=== PATIENT | female | born 1960 | race Caucasian/White ===

== ENCOUNTER 2018-10-27 07:57 | Emergency (ER) | payer BC ==
[~2018-10-27] VITALS: Ht 157.5 cm; Wt 58.0 kg
[~2018-10-27 07:57] MED LIST: ALPRAZOLAM0.25 M1 PO; ATENOLOL25 MG PO; AUGMENTIN875TAB PO; BACLOFEN10 MG PO; BACTRIM DS1 TAB PO; CIPROFLOXACN500 MG PO; DIFLUCAN150 MG PO; EPIPEN0.3 MG IM; FISH OIL1000 MG PO; FLEXERIL5 M1 PO; HYDROCHLOROT12.5 MG PO; LISINOPRIL20 M1 PO; LORTAB 5/3255 MG PO; MEDDOSEPAK OR; METRONIDAZOL250 MG PO; NAPROSYN500 MG PO; PREDNISONE20 MG PO; PRILOSEC20 MG PO; PROGESTERONE TOP; PYRIDIUM200 MG PO; TETRACYCLINE H500 MG PO; TRAMADOL HCL50 MG PO; ULTRAM50 M1 PO; VITAMIN D PO; XANAX0.25 MG PO; [UNRECOGNIZED DRUG - OTHER] PO
[2018-10-27] MEDS ORDERED: CARDIZEM30 MG PO (08:39)
[2018-10-27] MEDS ORDERED: PROTONIX40 M2 PO (08:39)
[2018-10-27 08:46] LABS: HEMATOCRIT 44.8 % (37.0-47.0); HEMOGLOBIN 14.6 g/dl (12.0-16.0); IMMATURE GRANULOCYTES 0.3 % (0.0-5.0); MEAN CORPUSCULAR HGB 30.4 pG CALC (26.0-32.0); MEAN CORPUSCULAR HGB CONC 32.6 g/L CALC (32.0-36.0); NEUT# 7.4 thou/uL (2.00-7.15); RED BLOOD COUNT 4.8 mill/uL (4.20-5.60); RED CELL DISTRI WIDTH 12.2 % (11.5-15.5)
[2018-10-27 08:47] LABS: MEAN CELL VOLUME 93.3 fL CALC (80.0-100.0)
[2018-10-27 08:48] LABS: URINE BILIRUBIN - DIPSTICK NEGATIVE (NEGATIVE); URINE BLOOD DIPSTICK LARGE (NEGATIVE); URINE COLOR YELLOW; URINE GLUCOSE - DIPSTICK NEGATIVE (NEGATIVE); URINE KETONE TRACE mg/dL (NEGATIVE); URINE NITRITE - DIPSTICK NEGATIVE (Negative); URINE PH 6.5 (4.5-8.0); URINE PROTEIN - DIPSTICK 100 mg/dL (NEG-TRACE); URINE SPECIFIC GRAVITY >=1.030; URINE UROBILINOGEN - DIPSTICK 0.2 E.U./dL (0.2)
[2018-10-27 08:49] LABS: URINE LEUK ESTERASE MODERATE (NEGATIVE); URINE SQUAMOUS EPITHELIAL CELL FEW EPI/hpf (0-FEW); URINE WBC 50-100 WBC/hpf (0-5)
[2018-10-27 08:58] LABS: ALBUMIN 4.7 g/dL (3.2-5.0); ALKALINE PHOSPHATASE 98 u/l (38-126); ANION GAP 14 (6-22 (CALC)); BILIRUBIN, TOTAL 0.6 mg/dL (0.0-1.4); BUN 12 mg/dL (7-17); BUN/CREATININE RATIO 17 (12-20 (CALC)); CARBON DIOXIDE 30 mmol/l (22-30); CHLORIDE 101 mmol/l (95-108); CREATININE 0.7 mg/dL (0.5-1.0); GFR > 60 ML/MIN (>=60 (CALC)); GFR FOR AFR.AMER. > 60 ML/MIN (>=60 (CALC)); LIPASE 79 u/l (23-300); POTASSIUM 3.7 mmol/l (3.5-5.1); SGOT/AST 26 u/l (14-36); SODIUM 142 mmol/l (137-146); TOTAL PROTEIN 7.8 g/dL (6.3-8.2)
[2018-10-27] MEDS ORDERED: CEPHALEXIN500 M1 PO (12:14)
[2018-10-27 12:15] VITALS: BP 154/86
== END 2018-10-27 12:21 | disposition home or self-care (01) | DRG 690 ==
LOC: ED 07:57
PROVIDERS: Family Medicine
DX: N39.0 Urinary tract infection, site not specified (principal); B96.4 Proteus (mirabilis) (morganii) as the cause of diseases classified elsewhere; R10.12 Left upper quadrant pain; R94.31 Abnormal electrocardiogram [ECG] [EKG]; I10 Essential (primary) hypertension

== ENCOUNTER 2019-03-05 10:27 | Emergency (ER) | payer BC ==
[~2019-03-05] VITALS: Ht 157.5 cm; Wt 57.3 kg
[~2019-03-05 10:27] MED LIST changes: +CEPHALEXIN500 M1 PO; +DILTIAZEM60 MG PO; +PROTONIX40 M2 PO
[2019-03-05 11:44] LABS: HEMATOCRIT 42.2 % (37.0-47.0); HEMOGLOBIN 13.8 g/dl (12.0-16.0); IMMATURE GRANULOCYTES 0.2 % (0.0-5.0); MEAN CELL VOLUME 90.2 fL CALC (80.0-100.0); MEAN CORPUSCULAR HGB 29.5 pG CALC (26.0-32.0); MEAN CORPUSCULAR HGB CONC 32.7 g/L CALC (32.0-36.0); NEUT# 6.36 thou/uL (2.00-7.15); RED BLOOD COUNT 4.68 mill/uL (4.20-5.60); RED CELL DISTRI WIDTH 11.9 % (11.5-15.5)
[2019-03-05 12:09] LABS: ANION GAP 13 (6-22 (CALC)); BUN 13 mg/dL (7-17); BUN/CREATININE RATIO 22 (12-20 (CALC)); CARBON DIOXIDE 28 mmol/l (22-30); CHLORIDE 105 mmol/l (95-108); CREATININE 0.6 mg/dL (0.5-1.0); GFR > 60 ML/MIN (>=60 (CALC)); GFR FOR AFR.AMER. > 60 ML/MIN (>=60 (CALC)); POTASSIUM 4.1 mmol/l (3.5-5.1); SODIUM 142 mmol/l (137-146)
[2019-03-05] MEDS ORDERED: FIORICET PO (12:41)
[2019-03-05] MEDS ORDERED: FLEXERIL5 MG PO (12:41)
[2019-03-05 13:13] VITALS: BP 148/88
== END 2019-03-05 13:17 | disposition home or self-care (01) | DRG 103 ==
LOC: ED 10:27
PROVIDERS: Family Medicine
DX: R51 Headache (principal)

== ENCOUNTER 2019-06-26 11:52 | Emergency (ER) | payer BC ==
[~2019-06-26] VITALS: Ht 157.5 cm; Wt 57.3 kg
[~2019-06-26 11:52] MED LIST changes: +FIORICET PO; +FLEXERIL5 MG PO
[2019-06-26 13:36] VITALS: BP 153/80
== END 2019-06-26 13:36 | disposition home or self-care (01) | DRG 605 ==
LOC: ED 11:52
PROC: 0HQGXZZ Repair Left Hand Skin, External Approach (ICD-10-PCS; principal; 2019-06-26)
DX: S61.211A Laceration without foreign body of left index finger without damage to nail, initial encounter (principal); I10 Essential (primary) hypertension; W26.0XXA Contact with knife, initial encounter; Y93.G1 Activity, food preparation and clean up

== ENCOUNTER 2019-08-01 08:32 | Observation (INO) | payer OTHER, BC ==
[~2019-08-01] VITALS: Ht 157.5 cm; Wt 55.7 kg
[2019-08-01 09:31] LABS: HEMATOCRIT 42.8 % (37.0-47.0); HEMOGLOBIN 14.1 g/dl (12.0-16.0); IMMATURE GRANULOCYTES 0.3 % (0.0-5.0); MEAN CELL VOLUME 90.7 fL CALC (80.0-100.0); MEAN CORPUSCULAR HGB 29.9 pG CALC (26.0-32.0); MEAN CORPUSCULAR HGB CONC 32.9 g/L CALC (32.0-36.0); NEUT# 3.97 thou/uL (2.00-7.15); RED BLOOD COUNT 4.72 mill/uL (4.20-5.60)
[2019-08-01 09:56] LABS: ANION GAP 15 (6-22 (CALC)); BUN 14 mg/dL (7-17); BUN/CREATININE RATIO 23 (12-20 (CALC)); CARBON DIOXIDE 25 mmol/l (22-30); CHLORIDE 103 mmol/l (95-108); CREATININE 0.6 mg/dL (0.5-1.0); GFR > 60 ML/MIN (>=60 (CALC)); GFR FOR AFR.AMER. > 60 ML/MIN (>=60 (CALC)); POTASSIUM 4.1 mmol/l (3.5-5.1); SODIUM 139 mmol/l (137-146)
[2019-08-01 14:46] VITALS: BP 156/88
[2019-08-01 19:10] VITALS: BP 119/78
[2019-08-02 00:05] VITALS: BP 128/79
[2019-08-02 04:41] VITALS: BP 112/73; BP 137/90
[2019-08-02 07:15] VITALS: BP 131/86
[2019-08-02 11:09] VITALS: BP 128/84
[2019-08-02 14:50] VITALS: BP 129/81
[2019-08-02] MEDS ORDERED: IBUPROFEN600 MG PO (15:58)
[2019-08-02] MEDS ORDERED: CYCLOBENZAPR10 MG PO (15:58)
== END 2019-08-02 17:37 | disposition home or self-care (01) | DRG 90 ==
LOC: ED 08:32 → ED-I 11:03 → ED 11:42 → MS2 11:43
PROVIDERS: Family Medicine; ADMIT Internal Medicine; ATTEND Internal Medicine
PROC: 0HQ0XZZ Repair Scalp Skin, External Approach (ICD-10-PCS; principal; 2019-08-01)
DX: S06.0X0A Concussion without loss of consciousness, initial encounter (principal); S01.01XA Laceration without foreign body of scalp, initial encounter; S13.9XXA Sprain of joints and ligaments of unspecified parts of neck, initial encounter; M25.511 Pain in right shoulder; I10 Essential (primary) hypertension; W17.89XA Other fall from one level to another, initial encounter; Y92.008 Other place in unspecified non-institutional (private) residence as the place of occurrence of the external cause; F41.1 Generalized anxiety disorder
CPT/HCPCS: G0378

== ENCOUNTER 2019-08-03 08:00 | Emergency (ER) | payer BC ==
[~2019-08-03] VITALS: Ht 157.5 cm; Wt 58.6 kg
[~2019-08-03 08:00] MED LIST changes: +CYCLOBENZAPR10 MG PO; +IBUPROFEN600 MG PO
[2019-08-03 11:14] VITALS: BP 132/77
== END 2019-08-03 11:14 | disposition home or self-care (01) | DRG 605 ==
LOC: ED 08:00
DX: S00.03XA Contusion of scalp, initial encounter (principal); W19.XXXD Unspecified fall, subsequent encounter

== ENCOUNTER 2020-03-02 12:41 | Observation (INO) | payer BC ==
[~2020-03-02] VITALS: Ht 157.5 cm; Wt 57.8 kg
--- NOTE | 2020-03-02 13:01 | NUR ---
Immediately back to room 9 via wc in stable condition.
[2020-03-02] MEDS ORDERED: XANAX0.25 MG PO (13:03)
--- NOTE | 2020-03-02 13:08 | NUR ---
Pt alert and oriented x 3, airway patent, resp even and non labored, no slurred speech or facial droop noted, no drift noted in extremities, left music director slightly weaker. pt reports taking a xanax prior to arrival, states " i'm having a problem getting my words out a little bit, i think it's my nerves and the medicine that I took"
[2020-03-02 13:18] LABS: HEMATOCRIT 42.6 % (37.0-47.0); HEMOGLOBIN 14.1 g/dl (12.0-16.0); IMMATURE GRANULOCYTES 0.1 % (0.0-5.0); MEAN CELL VOLUME 89.3 fL CALC (80.0-100.0); MEAN CORPUSCULAR HGB 29.6 pG CALC (26.0-32.0); MEAN CORPUSCULAR HGB CONC 33.1 g/dL CAL (32.0-36.0); NEUT# 4.51 thou/uL (2.00-7.15); RED BLOOD COUNT 4.77 mill/uL (4.20-5.60); RED CELL DISTRI WIDTH 11.9 % (11.5-15.5)
--- NOTE | 2020-03-02 13:30 | NUR ---
PT CONVERSIVE WITH , STATES SHE FEELS "ANXIOUS AT THIS TIME" ENCOURAGED PT TO TRY TO RELAX AND NOT CONCENTRATE ON BP SHE IS CONSTANTL WATCHING MONITOR.
[2020-03-02 13:36] LABS: ALBUMIN 4.8 g/dL (3.2-5.0); ALKALINE PHOSPHATASE 137 u/l (38-126); ANION GAP 12 (6-22 (CALC)); BILIRUBIN, TOTAL 0.5 mg/dL (0.0-1.4); BUN 10 mg/dL (7-17); BUN/CREATININE RATIO 17 (12-20 (CALC)); CARBON DIOXIDE 24 mmol/l (22-30); CHLORIDE 103 mmol/l (95-108); CREATININE 0.6 mg/dL (0.5-1.0); GFR > 60 ML/MIN (>=60 (CALC)); GFR FOR AFR.AMER. > 60 ML/MIN (>=60 (CALC)); POTASSIUM 3.4 mmol/l (3.5-5.1); SGOT/AST 41 u/l (14-36); SODIUM 136 mmol/l (137-146); TOTAL PROTEIN 7.6 g/dL (6.3-8.2)
[2020-03-02 13:48] LABS: MYOGLOBIN 34 ng/mL (0 - 62)
--- NOTE | 2020-03-02 14:50 | NUR ---
PT MEDICATED FOR ANXIETY PT STATES SHE "HAS SO MUCH ON ME RIGHT NOW". LIGHTS DIMMED FOR COMFORT.
[2020-03-02 15:09] LABS: URINE BILIRUBIN - DIPSTICK NEGATIVE (NEGATIVE); URINE BLOOD DIPSTICK TRACE-LYSED (NEGATIVE); URINE COLOR YELLOW; URINE GLUCOSE - DIPSTICK NEGATIVE (NEGATIVE); URINE KETONE NEGATIVE (NEGATIVE); URINE LEUK ESTERASE NEGATIVE (NEGATIVE); URINE NITRITE - DIPSTICK NEGATIVE (Negative); URINE PROTEIN - DIPSTICK NEGATIVE (NEG-TRACE); URINE UROBILINOGEN - DIPSTICK 0.2 E.U./dL (0.2)
--- NOTE | 2020-03-02 15:10 | NUR ---
P TTRANSPORTED TO [facility] VIA [facility]RET[facility] IN NO DISTRESS
--- NOTE | 2020-03-02 16:27 | NUR ---
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
[2020-03-02 16:30] VITALS: BP 161/90
--- NOTE | 2020-03-02 17:28 | NUR ---
LAB AT BEDSIDE
[2020-03-02 17:34] VITALS: BP 151/89
--- NOTE | 2020-03-02 17:38 | NUR ---
PT MEDICATED WITH PRN TYLENOL 650MG PO FOR HEADACHE PAIN RATING 5/10 ON THE PAIN SCALE;WILL CONTINUE TO MONITOR FOR EFFECTIVENESS
[2020-03-02 18:54] VITALS: BP 136/85
--- NOTE | 2020-03-02 20:05 | NUR ---
PT RESTING IN BED, ALERT AND ORIENTED. RESPIRATIONS EVEN AND UNLABORED ON RA. LUNGS SOUND CLEAR. PEDAL PULSES ARE STRONG. PT DENIES ANY PAIN OR DISCOMFORT AT THIS TIME. TELE IN PLACE. CALL [place] WITHIN REACH. WILL CONTINUE TO MONITOR.
--- NOTE | 2020-03-03 00:15 | NUR ---
PT RESTING IN BED WITH EYES CLOSED. NO S/S OF DISTRESS AT THIS TIME. SAFETY PRECAUTIONS IN PLACE. WILL CONTINUE TO MONITOR.
[2020-03-03 00:22] VITALS: BP 117/74
[2020-03-03 04:00] VITALS: BP 120/76
[2020-03-03 05:50] LABS: HEMATOCRIT 41.5 % (37.0-47.0); HEMOGLOBIN 13.6 g/dl (12.0-16.0); IMMATURE GRANULOCYTES 0.2 % (0.0-5.0); MEAN CELL VOLUME 90.6 fL CALC (80.0-100.0); MEAN CORPUSCULAR HGB 29.7 pG CALC (26.0-32.0); MEAN CORPUSCULAR HGB CONC 32.8 g/dL CAL (32.0-36.0); NEUT# 3.31 thou/uL (2.00-7.15); RED BLOOD COUNT 4.58 mill/uL (4.20-5.60); RED CELL DISTRI WIDTH 11.9 % (11.5-15.5)
[2020-03-03 06:24] LABS: ALBUMIN 3.9 g/dL (3.2-5.0); ALKALINE PHOSPHATASE 98 u/l (38-126); ANION GAP 9 (6-22 (CALC)); BILIRUBIN, TOTAL 0.7 mg/dL (0.0-1.4); BUN 10 mg/dL (7-17); BUN/CREATININE RATIO 16 (12-20 (CALC)); CARBON DIOXIDE 25 mmol/l (22-30); CHLORIDE 106 mmol/l (95-108); CREATININE 0.6 mg/dL (0.5-1.0); GFR > 60 ML/MIN (>=60 (CALC)); GFR FOR AFR.AMER. > 60 ML/MIN (>=60 (CALC)); SGOT/AST 25 u/l (14-36); SODIUM 136 mmol/l (137-146)
--- NOTE | 2020-03-03 07:00 | NUR ---
REPORT RECEIVED FROM KRISSY BROOKS;PT APPEARS TO BE SLEEPING IN SEMI FOWLERS POSITION;NO S/S OF DISTRESS NOTED;RESPIRATIONS EVEN AND UNLABORED ON RA;TELE MONITORING IN PLACE;ALL SAFETY PRECAUTIONS NOTED WITH BED IN THE LOWEST POSITION AND CALL LIGHT IN REACH;WILL CONTINUE TO MONITOR
[2020-03-03 07:44] VITALS: BP 114/72
--- NOTE | 2020-03-03 08:50 | NUR ---
PT RESTING IN SEMI FOWLERS POSITION,A&O X3;VS OBTAINED AND ASSESSMENT COMPLETED;PT DENIES ANY CURRENT PAIN OR DISCOMFORTS,PAIN SCALE AND REPORTING EDUCATED;RESPIRATIONS EVEN AND UNLABORED ON RA,CLEAR LUNG SOUNDS;ABDOMEN SOFT ON PALPATION AND ACTIVE IN ALL 4 QUADRANTS;STRONG PEDAL PULSES;SKIN INTACT;TELE MONITORING IN PLACE;#20G TO LAC FLUSHED AND PATENT,SITE APPEARS HEALTHY;PT DENIES ANY ADDITIONAL NEEDS AT THIS TIME AND IS ENCOURAGED TO CALL FOR ASSISTANCE IF NEEDED;FALL PRECAUTIONS IN PLACE WITH BED IN THE LOWEST POSITION AND CALL LIGHT IN REACH;WILL CONTINUE TO MONITOR
--- NOTE | 2020-03-03 09:13 | NUR ---
O.T. SCREENED PATIENT THIS A.M. AND FOUND PATIENT NOT TO BE APPROPRIATE AT THIS TIME FOR O.TJackie CHILDS DUE TO BEING I PER PT.
[2020-03-03 10:57] LABS: CHOLESTEROL HDL RATIO 2.9 (<4.4 (CALC))
[2020-03-03 11:12] VITALS: BP 120/80
--- NOTE | 2020-03-03 11:30 | NUR ---
AT BEDSIDE DISCUSSING POC.
--- NOTE | 2020-03-03 11:40 | NUR ---
PT RESTING IN SEMI FOWLERS POSITION;RESPIRATIONS EVEN AND UNLABORED ON RA;PT DENIES ANY CURRENT PAIN OR NEEDS;TELE MONITORING IN PLACE;IV SITE PATENT;PT EDUCATED ON PLAN FOR D/C HOME AND VERBALIZES UNDERSTANDING;PT DENIES ANY ADDITIONAL NEEDS;ENCOURAGED TO CALL FOR ASSISTANCE IF NEEDED;CALL LIGHT IN REACH;WILL CONTINUE TO MONITOR
--- NOTE | 2020-03-03 12:20 | NUR ---
ALL DISCHARGE INSTRUCTIONS PROVIDED AT THIS TIME;PT ENCOURAGED TO F/U WITH IN ONE WEEK AND CONTINUE HOME MEDICATIONS, PT VERBALIZES UNDERSTANDING AND DENIES ANY ADDITIONAL QUESTIONS OR NEEDS;IV SITE REMOVED WITH CATHETER INTACT AND TELE D/C BY KRISSY LIU;WHEELCHAIR TO BE PROVIDED FOR D/C HOME;FAMILY TO TRANSPORT PT HOME.
--- NOTE | 2020-03-03 12:29 | NUR ---
Discharge instructions given. Patient verbalizes understanding of same. Discharged in stable condition via Wheelchair to Home with family. All belongings sent with pt. PT TRANSPORTED TO [facility] IN STABLE CONDITION VIA WHEELCHAIR ACCOMPANIED BY CHRIST KNOX; FAMILY TO TRANSPORT PT HOME.
--- NOTE | 2020-03-03 20:03 | NUR ---
PT note Patient is screened for PT intervention and there are no needs at this time
== END 2020-03-03 12:29 | disposition home or self-care (01) | DRG 313 ==
LOC: ED 12:41 → ED-I 14:20 → ED 14:37 → ED-I 14:38 → MS2 14:38
PROVIDERS: Emergency Medicine; Nurse Practitioner Family; ADMIT Internal Medicine; ATTEND Internal Medicine
DX: R07.9 Chest pain, unspecified (principal); I10 Essential (primary) hypertension; F41.1 Generalized anxiety disorder; R20.2 Paresthesia of skin; K21.9 Gastro-esophageal reflux disease without esophagitis; Z20.828 Contact with and (suspected) exposure to other viral communicable diseases
CPT/HCPCS: G0378; J1650; J2060